=== PATIENT | female | born 1995 | race Caucasian/White ===

== ENCOUNTER 2018-12-30 12:04 | Outpatient (CLI) | payer OTHER | END 2018-12-30 15:15 | disposition home or self-care (01) | LOC: OBT 12:04 → L-D 12:04 → OBT 15:15 | DX: O36.8130 Decreased fetal movements, third trimester, not applicable or unspecified (principal); Z3A.35 35 weeks gestation of pregnancy | CPT/HCPCS: 76818 ==

== ENCOUNTER 2019-01-25 19:36 | Inpatient (IN) | payer OTHER ==
[2019-01-25] MEDS ORDERED: LACTATED RINGER'S 1,000 ML IV (20:18)
[2019-01-25] MEDS ORDERED: BUTORPHANOL 2 MG INJ IV (20:30)
[2019-01-25] MEDS ORDERED: METHYLERGONOVINE 0.2 MG INJ IM (20:30)
[2019-01-25] MEDS ORDERED: OXYTOCIN 30 UNITS/LR 500 ML IV (20:30)
[2019-01-25] MEDS ORDERED: CARBOPROST 250 MCG INJ IM (20:30)
[2019-01-25] MEDS ORDERED: MISOPROSTOL 200 MCG TAB PR (20:30)
[2019-01-25] MEDS: LACTATED RINGER'S 1,000 ML IV (21:33)
[2019-01-25 21:47] LABS: ADD MAN DIFF? NO
[2019-01-25 21:50] LABS: WHITE BLOOD COUNT 9.4 10^3/ul (4.8-10.8)
[2019-01-25 21:50] LABS: BASOPHILS % 0.3 % (0.0-2.0); EOSINOPHILS # 0.1 10^3/ul (0.0-0.5); EOSINOPHILS % 1.2 % (0.0-7.0); HEMATOCRIT 35.9 % (37.0-47.0); HEMOGLOBIN 11.5 g/dl (12.0-16.0); LYMPHOCYTES # 1.8 10^3/ul (0.8-2.9); LYMPHOCYTES % 18.6 % (15.0-51.0); MEAN CORPUSCULAR VOLUME 87.6 fl (82.0-101.0); MEAN PLATELET VOLUME 11.2 fl (7.4-10.4); MONOCYTE # 0.6 10^3/ul (0.3-0.9); NEUTROPHIL # 6.9 10^3/ul (1.6-7.5); NEUTROPHILS % 73.6 % (39.0-77.0); PLATELET COUNT 238 10^3/UL (140-415); RED CELL DISTRIBUTION WIDTH 15.4 % (11.5-14.5)
[2019-01-25 22:09] LABS: INR 0.89; PROTIME 12.1 Sec (11.9-14.9); PT RATIO 0.9
[2019-01-25 22:10] LABS: PARTIAL THROMBOPLASTIN TIME 28.2 Sec (23.0-35.0)
[2019-01-25 22:39] LABS: HEPATITIS B SURFACE ANTIGEN NEGATIVE (NEGATIVE)
[2019-01-25] MEDS: BUTORPHANOL 2 MG INJ IV (23:36)
[2019-01-26] MEDS: LACTATED RINGER'S 1,000 ML IV (02:42)
[2019-01-26] MEDS: BUTORPHANOL 2 MG INJ IV (03:09)
[2019-01-26] MEDS: OXYTOCIN 30 UNITS/LR 500 ML IV ×3 (04:25→08:52)
[2019-01-26] MEDS: LIDOCAINE 1% (MPF) 30 ML INJ INJ (04:26)
[2019-01-26] MEDS: IBUPROFEN 600 MG TAB PO ×5 (04:48→23:54)
[2019-01-26] MEDS ORDERED: METHYLERGONOVINE 0.2 MG INJ IM (06:00)
[2019-01-26] MEDS ORDERED: CARBOPROST 250 MCG INJ IM (06:00)
[2019-01-26] MEDS ORDERED: MISOPROSTOL 200 MCG TAB PR (06:00)
[2019-01-26] MEDS ORDERED: OXYTOCIN 30 UNITS/LR 500 ML IV (06:00)
[2019-01-26] MEDS ORDERED: HYDROCODONE/APAP (5/325) TAB PO (06:00)
[2019-01-26] MEDS: LACTATED RINGER'S 1,000 ML IV* ×3 (07:00→21:43)
[2019-01-26 15:43] LABS: RAPID PLASMA REAGIN NONREACTIVE (NR)
[2019-01-27] MEDS: IBUPROFEN 600 MG TAB PO ×4 (05:38→23:44)
[2019-01-27] MEDS: LACTATED RINGER'S 1,000 ML IV* (05:43)
[2019-01-27 09:00] LABS: ADD MAN DIFF? NO
[2019-01-27 09:01] LABS: BASOPHIL # 0.1 10^3/ul (0.0-0.1); BASOPHILS % 0.4 % (0.0-2.0); EOSINOPHILS # 0.1 10^3/ul (0.0-0.5); EOSINOPHILS % 1.1 % (0.0-7.0); HEMATOCRIT 37.7 % (37.0-47.0); HEMOGLOBIN 12.2 g/dl (12.0-16.0); LYMPHOCYTES # 1.6 10^3/ul (0.8-2.9); LYMPHOCYTES % 13.9 % (15.0-51.0); MEAN CORPUSCULAR HEMOGLOBIN 28.1 pg (29.0-33.0); MEAN CORPUSCULAR HGB CONC 32.4 g/dl (32.0-37.0); MEAN CORPUSCULAR VOLUME 86.9 fl (82.0-101.0); MEAN PLATELET VOLUME 10.7 fl (7.4-10.4); MONOCYTE # 0.6 10^3/ul (0.3-0.9); MONOCYTES % 5.3 % (0.0-11.0); NEUTROPHIL # 8.9 10^3/ul (1.6-7.5); NEUTROPHILS % 78.8 % (39.0-77.0); PLATELET COUNT 233 10^3/UL (140-415); RED BLOOD COUNT 4.34 10^6/ul (4.20-5.40); RED CELL DISTRIBUTION WIDTH 15.3 % (11.5-14.5)
[2019-01-27 09:01] LABS: WHITE BLOOD COUNT 11.3 10^3/ul (4.8-10.8)
[2019-01-27] MEDS: LANOLIN HPA 1 PKT TOP ×2 (10:14→17:56)
[2019-01-27] MEDS: MINERAL OIL LIGHT 10 ML VIAL TOP (14:54)
[2019-01-28] MEDS: IBUPROFEN 600 MG TAB PO ×2 (05:38→12:05)
[2019-01-28] MEDS: LANOLIN HPA 1 PKT TOP (10:30)
[2019-01-28] MEDS: DIPHTH/TET/ACEL PERTUSS (ADULT) 0.5 ML VIAL IM* (12:06)
== END 2019-01-28 15:05 | disposition home or self-care (01) | DRG 807 ==
LOC: OBT 19:36 → PP1 01-26 05:56 → L-D 19:37 → OBT 20:10 → L-D 20:10
PROVIDERS: Obstetrics & Gynecology
PROC: 10E0XZZ Delivery of Products of Conception, External Approach (ICD-10-PCS; principal; 2019-01-26)
PROC: 0HQ9XZZ Repair Perineum Skin, External Approach (ICD-10-PCS; 2019-01-26)
DX: O70.0 First degree perineal laceration during delivery (principal); Z37.0 Single live birth; O99.824 Streptococcus B carrier state complicating childbirth; Z3A.39 39 weeks gestation of pregnancy; Z23 Encounter for immunization
CPT/HCPCS: 85025; 85610; 85730; 86592; 86850; 86900; 86901; 87340; 90715